=== PATIENT | female | born 1955 | race Two or more races ===

== ENCOUNTER 2018-09-03 11:30 | Emergency (ER) | payer MEDICAID, OTHER ==
[~2018-09-03] VITALS: Ht 162.6 cm; Wt 68.0 kg
--- NOTE | 2018-09-03 11:32 | NUR ---
ED Nurse Note: Pt brought in via wheelchair by pt's friend at 1120 due to CP and headache, pain 06/13, pt could not tell where the pain is. A/Ox2. Vital signs stable at this time. Monitor attached. Will cont to monitor.
[2018-09-03] MEDS ORDERED: Sodium Chloride 500ML 500 ML IV ONE (11:33)
[2018-09-03] MEDS ORDERED: UNOBMED (11:36)
--- NOTE | 2018-09-03 11:36 | Emergency Room Report ---
History of Present Illness General Chief Complaint: chest pain Source: Patient Present Illness HPI Patient present with reports of headache Right-sided Reports of the headache came on about 30 minutes ago patient had also developed some chest pain with this Had an episode of vomiting in the emergency room Patient takes medication for hypertension otherwise denies any focal weakness Patient requires multiple coaching and attempting history before she is able to provide history She has her eyes closed and sluggish to respond Denies any trauma before this patient was cleaning When the sensation of the headache came on Denies any abdominal pain Allergies: Coded Allergies: No Known Allergies (Unverified , 12/04/14) Patient History Limited by: medical condition Past Medical History: see triage record Pertinent Family History: unable to obtain Reviewed Nursing Documentation: PMH: Agreed; PSxH: Agreed Nursing Documentation-PMH Hx Cardiac Problems: Yes Hx Hypertension: Yes Review of Systems All Other Systems: limited - Other than the ones mentioned in the history of present illness all others are reviewed however they do stay limited due to the patient's mental status Physical Exam 98% on room air which is normal Sp02 EP Interpretation: reviewed, normal General Appearance: mild distress - Actively nauseated Head: normocephalic, atraumatic Eyes: bilateral eye PERRL, bilateral eye EOMI ENT: normal pharynx, no angioedema Neck: supple Respiratory: lungs clear Cardiovascular #1: regular rate, rhythm Gastrointestinal: non tender, soft Musculoskeletal: normal inspection Neurologic: responsive - Patient however requires several attempts in order to follow command appears sluggish weak generally Skin: normal color, no rash Lymphatic: no adenopathy Medical Decision Making Diagnostic Impression: Primary Impression: ACS (acute coronary syndrome) ER Course Patient is a fairly complex patient with multiple differential to consideration including but not limited to cardiac cardiopulmonary and vascular emergencies Patient's blood work is appropriate CT imaging was negative Patient continues to be verbal moves all extremities appropriately marijuana test was positive Patient's family denies marijuana use Patient remains pain-free at this time and is stable for further inpatient care patient was transferred secondary to insurance request Labs Test 09/03/18 11:20 09/03/18 12:45 White Blood Count 10.3 K/UL (4.8-10.8) Red Blood Count 4.55 M/UL (4.20-5.40) Hemoglobin 13.2 G/DL (12.0-16.0) Hematocrit 41.7 % (37.0-47.0) Mean Corpuscular Volume 92 FL (80-99) Mean Corpuscular Hemoglobin 28.9 PG (27.0-31.0) Mean Corpuscular Hemoglobin Concent 31.6 G/DL (32.0-36.0) Red Cell Distribution Width 12.7 % (11.6-14.8) Platelet Count 188 K/UL (150-450) Mean Platelet Volume 10.6 FL (6.5-10.1) Neutrophils (%) (Auto) 40.6 % (45.0-75.0) Lymphocytes (%) (Auto) 50.5 % (20.0-45.0) Monocytes (%) (Auto) 6.5 % (1.0-10.0) Eosinophils (%) (Auto) 1.3 % (0.0-3.0) Basophils (%) (Auto) 1.1 % (0.0-2.0) Sodium Level 140 MMOL/L (136-145) Potassium Level 3.2 MMOL/L (3.5-5.1) Chloride Level 104 MMOL/L (98-107) Carbon Dioxide Level 25 MMOL/L (21-32) Anion Gap 11 mmol/L (5-15) Blood Urea Nitrogen 17 mg/dL (7-18) Creatinine 0.8 MG/DL (0.55-1.30) Estimat Glomerular Filtration Rate > 60 mL/min (>60) Glucose Level 137 MG/DL (74-106) Calcium Level 8.5 MG/DL (8.5-10.1) Total Bilirubin 0.3 MG/DL (0.2-1.0) Aspartate Amino Transf (AST/SGOT) 19 U/L (15-37) Alanine Aminotransferase (ALT/SGPT) 31 U/L (12-78) Alkaline Phosphatase 110 U/L (46-116) Total Creatine Kinase 100 U/L (26-308) Creatine Kinase MB 1.2 NG/ML (0.0-3.6) Creatine Kinase MB Relative Index 1.2 Troponin I 0.004 ng/mL (0.000-0.056) Total Protein 7.8 G/DL (6.4-8.2) Albumin 3.7 G/DL (3.4-5.0) Globulin 4.1 g/dL Albumin/Globulin Ratio 0.9 (1.0-2.7) Urine Color Pale yellow Urine Appearance Clear Urine pH 6.5 (4.5-8.0) Urine Specific [place] 1.015 (1.005-1.035) Urine Protein 1+ (NEGATIVE) Urine Glucose (UA) Negative (NEGATIVE) Urine Ketones Negative (NEGATIVE) Urine Blood Negative (NEGATIVE) Urine Nitrite Negative (NEGATIVE) Urine Bilirubin Negative (NEGATIVE) Urine Urobilinogen Normal MG/DL (0.0-1.0) Urine Leukocyte Esterase Negative (NEGATIVE) Urine RBC 0 /HPF (0 - 2) Urine WBC 0-2 /HPF (0 - 2) Urine Squamous Epithelial Cells Occasional /LPF Urine Amorphous Sediment Occasional /LPF (NONE) Urine Bacteria Occasional /HPF (NONE) Urine Opiates Screen Negative (NEGATIVE) Urine Barbiturates Screen Negative (NEGATIVE) Phencyclidine (PCP) Screen Negative (NEGATIVE) Urine Amphetamines Screen Negative (NEGATIVE) Urine Benzodiazepines Screen Negative (NEGATIVE) Urine Cocaine Screen Negative (NEGATIVE) Urine Marijuana (THC) Screen Positive (NEGATIVE) EKG Diagnostic Results Rate: normal Rhythm: NSR ST Segments: no acute changes Rhythm Strip Diag. Results EP Interpretation: yes Rate: 60 Rhythm: NSR, no PVC's, no ectopy Chest X-Ray Diagnostic Results Chest X-Ray Diagnostic Results : Chest X-Ray Ordered: Yes # of Views/Limited/Complete: 1 View Indication: Chest Pain EP Interpretation: Yes Interpretation: no consolidation, no effusion, no pneumothorax Impression: No acute disease Electronically Signed by: Beto Sutherland DO CT/MRI/US Diagnostic Results CT/MRI/US Diagnostic Results : Impression CT head no acute disease Status: improved [facility] Condition: Improved Beto Sutherland DO Sep 03, 2018 11:36
--- NOTE | 2018-09-03 11:37 | NUR ---
ED Nurse Note: pt's friend, Jerzy Pérez [phone]
--- NOTE | 2018-09-03 11:45 | NUR ---
ED Nurse Note: Pt down to CT for imaging.
--- NOTE | 2018-09-03 12:00 | Diagnostic Imaging Report ---
Indication: Reason For Exam: PAIN Technique: Continuous helical CT scanning of the head was performed without intravenous contrast material. Axial and coronal 5 mm sections were generated. Radiation dose was minimized using automated exposure control Dose: Total Dose Length Product - DLP 1369.[address] Dose Index - CTDIvol(s) 70.38 mGy. Comparison: 12/04/2014 Findings: The ventricular system is normal in size and configuration. There is no shift of midline structures. No abnormal extra-axial fluid collections are noted. There is no evidence of intracerebral bleeding. No other abnormal high or low density areas are noted within the brain. Visualized orbits and sinuses are unremarkable. The mastoids are clear. The calvarium is intact. Gautam-white differentiation is normal. Impression: Normal CT scan of the head without contrast material. Stat code stroke findings phoned to Dr. Sutherland at the time of interpretation The CT scanner at [facility] is accredited by the [employer] and the scans are performed using protocols designed to limit radiation exposure to as low as reasonably achievable to attain images of sufficient resolution adequate for diagnostic evaluation.
[2018-09-03 12:08] VITALS: BP 121/68
[2018-09-03 12:18] LABS: ANION GAP 11 mmol/L (5-15); BLOOD UREA NITROGEN 17 mg/dL (7-18); CALCIUM 8.5 MG/DL (8.5-10.1); CARBON DIOXIDE 25 MMOL/L (21-32); CHLORIDE 104 MMOL/L (98-107); CREATININE 0.8 MG/DL (0.55-1.30); POTASSIUM 3.2 MMOL/L (3.5-5.1); SODIUM 140 MMOL/L (136-145)
[2018-09-03 12:19] LABS: BASOPHILS % (AUTO) 1.1 % (0.0-2.0); EOSINOPHILS % (AUTO) 1.3 % (0.0-3.0); HEMATOCRIT 41.7 % (37.0-47.0); HEMOGLOBIN 13.2 G/DL (12.0-16.0); LYMPHOCYTES % (AUTO) 50.5 % (20.0-45.0); MEAN CORPUSCULAR VOLUME 92 FL (80-99); MONOCYTES % (AUTO) 6.5 % (1.0-10.0); NEUTROPHILS % (AUTO) 40.6 % (45.0-75.0); PLATELET COUNT 188 K/UL (150-450); RED BLOOD COUNT 4.55 M/UL (4.20-5.40); RED CELL DISTRIBUTION WIDTH 12.7 % (11.6-14.8); WHITE BLOOD COUNT 10.3 K/UL (4.8-10.8)
[2018-09-03 12:32] LABS: ALANINE AMINOTRANSFERASE 31 U/L (12-78); ALBUMIN 3.7 G/DL (3.4-5.0); ALBUMIN/GLOBULIN RATIO 0.9 (1.0-2.7); ALKALINE PHOSPHATASE 110 U/L (46-116); ASPARTATE AMINO TRANSFERASE 19 U/L (15-37); BILIRUBIN,TOTAL 0.3 MG/DL (0.2-1.0); CKMB 1.2 NG/ML (0.0-3.6); CREATINE KINASE 100 U/L (26-308)
[2018-09-03 13:03] LABS: APPEARANCE,URINE CLEAR; BILIRUBIN, URINE NEGATIVE (NEGATIVE); COLOR,URINE PALE YELLOW; GLUCOSE, URINE (UA) NEGATIVE (NEGATIVE); KETONES,URINE NEGATIVE (NEGATIVE); LEUKOCYTE ESTERASE ,URINE NEGATIVE (NEGATIVE); NITRITE,URINE NEGATIVE (NEGATIVE); PH,URINE 6.5 (4.5-8.0); PROTEIN,URINE 1+ (NEGATIVE); UROBILINOGEN,URINE NORMAL MG/DL (0.0-1.0)
[2018-09-03 13:08] VITALS: BP 125/64
--- NOTE | 2018-09-03 13:34 | NUR ---
ED Nurse Note: received report from RN Marissa and endorsed care, pt resting comfortably in bed, Stephane at the bedside, pt vss, NSR on pvc monitor, will continue to monitor. Pt advised to call staff for assist/needs.
--- NOTE | 2018-09-03 13:48 | Diagnostic Imaging Report ---
Indication: Chest pain Technique: One view of the chest Comparison: For 10/24/2014 Findings: There are bilateral basilar linear reticular opacities, appearing similar to prior exam, likely combination of atelectasis and fibrotic changes. The heart size is upper limits normal. No definite focal airspace consolidation. No definite effusions. Impression: Basilar reticular and linear opacities, similar to 2015 exam somewhat suspect chronic but infiltrates not completely excludable. Correlate with clinical findings
--- NOTE | 2018-09-03 15:02 | NUR ---
report given to toney lawrence gasket supervisor patient will be transferd to [facility] for observation and admission
[2018-09-03 15:03] VITALS: BP 130/80
[2018-09-03 15:04] VITALS: BP 130/80
--- NOTE | 2018-09-03 15:13 | NUR ---
ED Nurse Note: ambulance personnel at the bedside for transport, report given and endorsed care, family at the bedside.
== END 2018-09-03 15:26 | disposition short-term general hospital (02) ==
LOC: EMR 12:10
DX: I24.9 Acute ischemic heart disease, unspecified (principal); I10 Essential (primary) hypertension; R07.9 Chest pain, unspecified
CPT/HCPCS: 36415; 70450; 71045; 80053; 80307; 81003; 82550; 82553; 84484; 85025; 93005; 96374; 99285; J2405